=== PATIENT | male | born 1955 | race Caucasian/White ===

== ENCOUNTER 2024-05-22 10:15 | Emergency (ER) | payer OTHER ==
[2024-05-22 10:45] VITALS: BP 105/59; PULSE 102; RESP 16; TEMP 98.1; BMI 26.6
== END 2024-05-22 17:02 | disposition home or self-care (01) ==
LOC: JER 10:15
DX: S31.20XA Unspecified open wound of penis, initial encounter (principal); M79.604 Pain in right leg; M79.89 Other specified soft tissue disorders; X58.XXXA Exposure to other specified factors, initial encounter
CPT/HCPCS: 93971-TC; 99284-25